=== PATIENT | female | born 1965 | race Caucasian/White ===

== ENCOUNTER 2020-11-30 10:27 | Day surgery (SDC) | payer BC ==
[2020-11-30] MEDS ORDERED: LIDOCAINE HCL 2% 100 MG/5 ML IJ ONE (10:28)
[2020-11-30] MEDS ORDERED: Depo-Medrol 40 MG/ML IM ONE (10:28)
[2020-11-30] MEDS ORDERED: Ketamine HCl 50 MG/ML ONE (12:06)
[2020-11-30] MEDS ORDERED: DIPRIVAN 200 MG/20 ML IV ONE (12:06)
--- NOTE | 2020-11-30 12:35 | XRAY ---
Indication: Bilateral L4-S1 MBB. Intraoperative fluoroscopy was provided for 11 seconds. Single digital spot image submitted for interpretation demonstrates posterior needle tips projecting over the expected left and right L4-S1 nerve roots. Correlate with intraoperative findings/report.
--- NOTE | 2020-11-30 12:53 | XRAY ---
11 seconds fluoroscopy time in surgery for bilateral L4-S1 MBB.
[2020-11-30] MEDS ORDERED: Lactated Ringers 1,000 ML IV ONE (13:52)
== END 2020-11-30 12:34 | disposition home or self-care (01) ==
LOC: SDC-PAIN 10:27
PROVIDERS: ATTEND Psychiatry & Neurology Pain Medicine
DX: M47.816 Spondylosis without myelopathy or radiculopathy, lumbar region (principal)
CPT/HCPCS: 64493; 64494; 72020; 77002; J1030; J2704

== ENCOUNTER 2021-01-04 14:11 | Day surgery (SDC) | payer BC ==
[2021-01-04] MEDS ORDERED: Depo-Medrol 40 MG/ML IM ONE (14:12)
[2021-01-04] MEDS ORDERED: BUPIVACAINE 0.5% VIAL IJ ONE (14:12)
[2021-01-04] MEDS ORDERED: Lactated Ringers 1,000 ML IV ONE (14:42)
[2021-01-04] MEDS ORDERED: DIPRIVAN 200 MG/20 ML IV ONE (16:01)
--- NOTE | 2021-01-04 18:01 | XRAY ---
9 seconds fluoroscopy time in surgery for bilateral L4-S1 MBB.
== END 2021-01-04 16:27 | disposition home or self-care (01) ==
LOC: SDC-PAIN 14:11
PROVIDERS: ATTEND Psychiatry & Neurology Pain Medicine
DX: M47.816 Spondylosis without myelopathy or radiculopathy, lumbar region (principal); F31.9 Bipolar disorder, unspecified; Z79.899 Other long term (current) drug therapy
CPT/HCPCS: 64493; 64494; 72020; 77002; J1030; J2704

== ENCOUNTER 2021-03-15 10:06 | Day surgery (SDC) | payer BC ==
[2021-03-15] MEDS ORDERED: Xylocaine 1% Vial 30 ML PF IJ ONE (10:07)
[2021-03-15] MEDS ORDERED: Depo-Medrol 40 MG/ML IM ONE (10:07)
[2021-03-15] MEDS ORDERED: BUPIVACAINE 0.5% VIAL IJ ONE (10:07)
[2021-03-15] MEDS ORDERED: DIPRIVAN 200 MG/20 ML IV ONE (11:59)
--- NOTE | 2021-03-15 13:30 | XRAY ---
21 seconds fluoroscopy time in surgery for right L4-S1 RFA.
--- NOTE | 2021-03-15 13:31 | XRAY ---
Indication: Right L4-S1 RFA. Intraoperative fluoroscopy provided for 21 seconds. 3 digital spot image submitted for interpretation demonstrates posterior needle tips projecting over the expected right L4-S1 nerve roots. Correlate with intraoperative findings/report. Incidental incompletely visualized right spinal stimulator device/lead.
[2021-03-15] MEDS ORDERED: Lactated Ringers 1,000 ML IV ONE (15:54)
== END 2021-03-15 12:45 | disposition home or self-care (01) ==
LOC: SDC-PAIN 10:06
PROVIDERS: ATTEND Psychiatry & Neurology Pain Medicine
DX: M47.816 Spondylosis without myelopathy or radiculopathy, lumbar region (principal); Z79.899 Other long term (current) drug therapy
CPT/HCPCS: 64493; 64494; 72100; 77002; J1030; J2001; J2704

== ENCOUNTER 2021-03-22 12:11 | Day surgery (SDC) | payer BC ==
[2021-03-22] MEDS ORDERED: BUPIVACAINE 0.5% VIAL IJ ONE (12:12)
[2021-03-22] MEDS ORDERED: Xylocaine 1% Vial 30 ML PF IJ ONE (12:12)
[2021-03-22] MEDS ORDERED: Depo-Medrol 40 MG/ML IM ONE (12:12)
[2021-03-22] MEDS ORDERED: DIPRIVAN 200 MG/20 ML IV ONE (14:02)
[2021-03-22] MEDS ORDERED: Lactated Ringers 1,000 ML IV ONE (14:56)
--- NOTE | 2021-03-22 15:04 | XRAY ---
Indication: Left L4-S1 RFA. Intraoperative fluoroscopy provided for 21 seconds. 3 digital spot image submitted for interpretation demonstrates posterior needle tips projecting over the expected left L4-S1 nerve roots. Correlate with intraoperative findings/report.
--- NOTE | 2021-03-22 15:15 | XRAY ---
21 seconds of fluoroscopy was used in surgery for a left L4-L5 and L5-S1 RFA.
== END 2021-03-22 14:40 | disposition home or self-care (01) ==
LOC: SDC-PAIN 12:11
PROVIDERS: ATTEND Psychiatry & Neurology Pain Medicine
DX: M47.816 Spondylosis without myelopathy or radiculopathy, lumbar region (principal); Z79.899 Other long term (current) drug therapy
CPT/HCPCS: 64635; 64636; 72100; 77002; J1030; J2001; J2704

== ENCOUNTER 2021-05-31 15:33 | Day surgery (SDC) | payer BC ==
[~2021-05-31 15:33] MED LIST: Lactated Ringers 1,000 ML IV ONE
[2021-05-31] MEDS ORDERED: Depo-Medrol 40 MG/ML IM ONE (15:34)
[2021-05-31] MEDS ORDERED: BUPIVACAINE 0.5% VIAL IJ ONE (15:34)
[2021-05-31] MEDS ORDERED: DIPRIVAN 200 MG/20 ML IV ONE (17:43)
--- NOTE | 2021-05-31 20:41 | XRAY ---
Indication: Sacrococcygeal ligament injection. Intraoperative fluoroscopy provided for 39 seconds. 2 digital spot image submitted for interpretation demonstrates posterior needle tip projecting just anterior to the coccyx. Small amount of contrast injected for needle tip placement. Correlate with intraoperative findings/report.
--- NOTE | 2021-06-01 08:52 | XRAY ---
39 seconds fluoroscopy time in surgery for injection of the sacrococcygeal ligament.
== END 2021-05-31 18:10 | disposition home or self-care (01) ==
LOC: SDC-PAIN 15:33
PROVIDERS: ATTEND Psychiatry & Neurology Pain Medicine
DX: M53.3 Sacrococcygeal disorders, not elsewhere classified (principal); Z79.899 Other long term (current) drug therapy
CPT/HCPCS: 20600; 72220; 77002; J1030; J2704; Q9966

== ENCOUNTER 2022-05-09 15:22 | Day surgery (SDC) | payer BC ==
[2022-05-09] MEDS ORDERED: Sodium Chloride 0.9(Preservative Free) 10 ML IJ ONE (15:23)
[2022-05-09] MEDS ORDERED: Depo-Medrol 40 MG/ML IM ONE (15:23)
[2022-05-09] MEDS ORDERED: Lactated Ringers 1,000 ML IV ONE (15:54)
--- NOTE | 2022-05-09 18:21 | XRAY ---
Indication: Left L4-S1 transforaminal TANO. Intraoperative fluoroscopy provided for 22 seconds. 4 digital spot image submitted for interpretation demonstrates posterior needle tips projecting over the expected left L4 and L5 nerve roots. Small amount of contrast injected for needle tip placement. Correlate with intraoperative findings/report.
--- NOTE | 2022-05-10 09:53 | XRAY ---
22 seconds of fluoroscopy was used in surgery for a left L4-S1 transforaminal TANO.
== END 2022-05-09 17:00 | disposition home or self-care (01) ==
LOC: SDC-PAIN 15:22
PROVIDERS: ATTEND Psychiatry & Neurology Pain Medicine
DX: M54.16 Radiculopathy, lumbar region (principal); Z79.899 Other long term (current) drug therapy
CPT/HCPCS: 64483; 64484; 72100; 77003; J1030; Q9966

== ENCOUNTER 2023-09-18 06:47 | Day surgery (SDC) | payer BC ==
[2023-09-18] MEDS ORDERED: Depo-Medrol 40 MG/ML IM ONE (06:48)
[2023-09-18] MEDS ORDERED: BUPIVACAINE 0.5% VIAL IJ ONE (06:48)
[2023-09-18] MEDS ORDERED: XYLOCAINE-MPF 1% 5ML SDV IJ ONE (06:48)
[2023-09-18] MEDS ORDERED: DIPRIVAN 200 MG/20 ML IV ONE (08:11)
[2023-09-18] MEDS ORDERED: Lactated Ringers 1,000 ML IV ONE (09:19)
--- NOTE | 2023-09-18 09:52 | XRAY ---
Indication: Right L4-S1 RFA. Intraoperative fluoroscopy provided for 24 seconds. 4 digital spot images submitted for interpretation demonstrates posterior needle tips projecting over the expected right L4-S1 nerve roots. Correlate with intraoperative findings/report. Incidental partially visualized right epidural stimulator device and lead.
--- NOTE | 2023-09-18 10:04 | XRAY ---
24 seconds of fluoroscopy was used in surgery for a right L4-S1 RFA.
== END 2023-09-18 08:43 | disposition home or self-care (01) ==
LOC: SDC-PAIN 06:47
PROVIDERS: ATTEND Psychiatry & Neurology Pain Medicine
DX: M47.816 Spondylosis without myelopathy or radiculopathy, lumbar region (principal)
CPT/HCPCS: 64635; 64636; 72100; 77002; J1030; J2704

== ENCOUNTER 2023-09-25 12:32 | Day surgery (SDC) | payer BC ==
[2023-09-25] MEDS ORDERED: Depo-Medrol 40 MG/ML IM ONE (12:33)
[2023-09-25] MEDS ORDERED: XYLOCAINE-MPF 1% 5ML SDV IJ ONE (12:33)
[2023-09-25] MEDS ORDERED: BUPIVACAINE 0.5% VIAL IJ ONE (12:33)
[2023-09-25] MEDS ORDERED: DIPRIVAN 200 MG/20 ML IV ONE (16:15)
[2023-09-25] MEDS ORDERED: Lactated Ringers 1,000 ML IV ONE (16:29)
--- NOTE | 2023-09-25 17:02 | XRAY ---
Indication: Left L4-S1 RFA. Intraoperative fluoroscopy provided for 27 seconds. 5 digital spot image submitted for interpretation demonstrates posterior needle tips projecting over the expected left L4-S1 nerve roots. Correlate with intraoperative findings/report. Incidental partially visualized right epidural stimulator lead.
--- NOTE | 2023-09-25 18:38 | XRAY ---
27 seconds of fluoroscopy was used in surgery for a left L4-S1 RFA.
== END 2023-09-25 16:48 | disposition home or self-care (01) ==
LOC: SDC-PAIN 12:32
PROVIDERS: ATTEND Psychiatry & Neurology Pain Medicine
DX: M47.816 Spondylosis without myelopathy or radiculopathy, lumbar region (principal)
CPT/HCPCS: 64635; 64636; 72100; 77002; J1030; J2704

== ENCOUNTER 2024-02-19 14:44 | Day surgery (SDC) | payer BC ==
[2024-02-19] MEDS ORDERED: Depo-Medrol 40 MG/ML IM ONE (14:45)
[2024-02-19] MEDS ORDERED: BUPIVACAINE 0.5% VIAL IJ ONE (14:45)
[2024-02-19] MEDS ORDERED: LIDOCAINE HCL 1% 50 MG/5 ML VL PF IJ ONE (14:45)
--- NOTE | 2024-02-19 20:09 | XRAY ---
Indication: Bilateral greater trochanter bursa injection. Intraoperative fluoroscopy provided for 28 seconds. 2 digital spot image submitted for interpretation demonstrates needle tips projecting lateral to the left and right greater trochanters. Small amount of contrast injected for needle tip placement. Correlate with intraoperative findings/report.
--- NOTE | 2024-02-20 09:10 | XRAY ---
28 seconds of fluoroscopy was used in surgery for a bilateral greater trochanteric bursa injection.
== END 2024-02-19 17:30 | disposition home or self-care (01) ==
LOC: SDC-PAIN 14:44
PROVIDERS: ATTEND Psychiatry & Neurology Pain Medicine
DX: M70.62 Trochanteric bursitis, left hip (principal); M70.61 Trochanteric bursitis, right hip
CPT/HCPCS: 20610; 73521; 77002; J1010; J2001; Q9966

== ENCOUNTER 2024-08-05 12:40 | Day surgery (SDC) | payer BC ==
[2024-08-05] MEDS ORDERED: BUPIVACAINE 0.5% VIAL IJ ONE (12:41)
[2024-08-05] MEDS ORDERED: Depo-Medrol 40 MG/ML IM ONE (12:41)
[2024-08-05] MEDS ORDERED: DIPRIVAN 200 MG/20 ML IV ONE (14:28)
--- NOTE | 2024-08-05 16:51 | XRAY ---
Indication: Bilateral greater trochanter bursa injection. Intraoperative fluoroscopy provided for 13 seconds. 2 digital spot image submitted for interpretation demonstrates needle tips projecting lateral to left and right greater trochanters. Small amount of contrast injected for both needle tip placement. Correlate with intraoperative findings/report.
--- NOTE | 2024-08-05 17:05 | XRAY ---
13 seconds of fluoroscopy was used in surgery for a bilateral greater trochanteric bursa injection.
== END 2024-08-05 14:56 ==
LOC: SDC-PAIN 12:40
PROVIDERS: ATTEND Psychiatry & Neurology Pain Medicine
DX: M70.62 Trochanteric bursitis, left hip (principal); M70.61 Trochanteric bursitis, right hip
CPT/HCPCS: 20610; 73521; 77002; J2704; Q9966